=== PATIENT | female | born 1995 | race African-American/Black ===

== ENCOUNTER 2020-04-04 01:03 | Emergency (ER) | payer MEDICAID, OTHER ==
[2020-04-04 01:20] VITALS: BP 123/80
[2020-04-04] MEDS ORDERED: SILVER SULFADIAZINE 1% CREAM 25 GM TP ONE (03:42)
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
[2020-04-04] MEDS ORDERED: OXYCODONE-ACETAMINOPHEN 5-325 MG TABLET PO ONE (03:43)
[2020-04-04] MEDS ORDERED: HYDROCODONE/ACETAMINOPHEN 5-325 MG (6 TAB/ER DISP) PO PRN (03:43)
== END 2020-04-04 03:24 | disposition home or self-care (01) ==
LOC: ER 01:03
DX: T23.242A Burn of second degree of multiple left fingers (nail), including thumb, initial encounter (principal); T23.241A Burn of second degree of multiple right fingers (nail), including thumb, initial encounter; X08.8XXA Exposure to other specified smoke, fire and flames, initial encounter; Y93.89 Activity, other specified; Y92.009 Unspecified place in unspecified non-institutional (private) residence as the place of occurrence of the external cause
CPT/HCPCS: 99283

== ENCOUNTER 2020-06-02 13:52 | Emergency (ER) | payer BC ==
--- NOTE | 2020-06-02 15:59 | ER Document Report ---
ED Medical Screen (RME) - General Chief Complaint: Vag Bleeding, +preg <12wks Stated Complaint: VAGINAL BLEEDING,7 WKS Time Seen by Provider: 06/02/20 15:54 - HPI Notes: 06/02/20 15:58 25-year-old female G2, P1 LMP 04/16/2020 who is approximately 7 weeks presents to the emergency room with vaginal bleeding that started 2 days ago. Reports she had some pink spotting, then it turned a little brown and now is b ack to pink spotting. Not enough to soak through pantyliner. Her first appointment with her MITER CUTTER is June 15, 2019. Denies any nausea, vomiting, abdominal pain, diarrhea. Unsure of her ABO. I have greeted and performed a rapid initial assessment of this patient. A comprehensive ED assessment and evaluation of the patient, analysis of test results and completion of the medical decision making process will be conducted by additional ED providers. PHYSICAL EXAMINATION: GENERAL: Well-appearing, well-nourished and in no acute distress. CV: s1, s2 regular LUNGS: No respiratory distress abd: No cva tenderness bilaterally The patient was evaluated during a global COVID-19 pandemic and that diagnosis was suspected/considered upon their initial presentation. Their evaluation, tr eatment and testing was consistent with current guidelines for patients who present with complaints or symptoms and may be related to COVID-19. - Related Data Allergies/Adverse Reactions: Penicillins Allergy (Intermediate, Verified 06/02/20 15:53) Hives Physical Exam - Vital signs Vitals: Temp Pulse Resp BP Pulse Ox 97.5 F 101 H 18 149/92 H 100 06/02/20 14:33 06/02/20 14:33 06/02/20 14:33 06/02/20 14:33 06/02/20 14:33 Course - Vital Signs Vital signs: Temp Pulse Resp BP Pulse Ox 97.5 F 101 H 18 149/92 H 100 06/02/20 14:33 06/02/20 14:33 06/02/20 14:33 06/02/20 14:33 06/02/20 14:33
--- NOTE | 2020-06-02 17:07 | RADIOLOGY REPORT (SQ) ---
EXAM DESCRIPTION: U/S OB TRANSVAG W/DOPPLER IMAGES COMPLETED DATE/TIME: 06/02/2020 4:48 pm REASON FOR STUDY: vag bleeding, 7 weeks preg COMPARISON: None. TECHNIQUE: Transvaginal static and realtime grayscale images acquired of the pelvis. Additional mela cted spectral and color Doppler images recorded. All images stored on PACs. bHCG: Not available. CLINICAL DATES: 6 weeks, 5 days LIMITATIONS: None. FINDINGS: FETUS: Single Living intrauterine . ULTRASOUND EGA: 6 weeks, 1 day ULTRASOUND DAKSHA: 01/25/2021 EFW: Not applicable less than 20 weeks. CRL: 4.1 mm FHR: 115 beats per minute. SURVEY: Too early to assess. AMNIOTIC FLUID: Adequate amount. PLACENTA: Not yet developed due to early gestation. SUBCHORIONIC BLEED: Yes. SIZE OF BLEED: 5 x 8 x 4 mm UTERUS: No masses. No anomalies. CERVICAL LENGTH: 1.9 cm Closed. RIGHT ADNEXA: Ovary not identified due to poor acoustical window. LEFT ADNEXA: Normal ovary with normal vascular flow. No adnexal free fluid. No adnexal masses. FREE FLUID: None. OTHER: No other significant finding. IMPRESSION: LIVING INTRAUTERINE . EGA 6 weeks, 1 day Trimester of : First trimester - 0 to 13 weeks. TECHNICAL DOCUMENTATION: JOB ID: [id number] 2010 [employer]- All Rights Reserved rev-10/20 Reading location - IP/workstation name: [email or web address]
[2020-06-02 17:20] LABS: ABSOLUTE EOSINOPHILS # (AUTO) 0.1 10^3/uL (0.0-0.6); ABSOLUTE LYMPHOCYTES (AUTO) 1.7 10^3/uL (0.5-4.7); ABSOLUTE MONOCYTES (AUTO) 0.8 10^3/uL (0.1-1.4); ABSOLUTE NEUT (AUTO) 4.8 10^3/uL (1.7-8.2); BASOPHILS % (AUTO) 0.3 % (0-2); EOSINOPHILS % (AUTO) 1.4 % (0-6); HEMATOCRIT 32.2 % (36.0-47.0); HEMOGLOBIN 10.5 g/dL (12.0-15.5); MEAN CORPUSCULAR HEMOGLOBIN 23.9 pg (27.0-33.4); MEAN CORPUSCULAR HGB CONC 32.6 g/dL (32.0-36.0); MEAN CORPUSCULAR VOLUME 74 fl (80-97); MONOCYTES % (AUTO) 10.6 % (3-13); PLATELET COUNT 316 10^3/uL (150-450); RED BLOOD COUNT 4.37 10^6/uL (3.72-5.28); RED CELL DISTRIBUTION WIDTH 18.8 % (11.5-14.0); SEGMENTED NEUTROPHILS % (AUTO) 64.7 % (42-78); TOTAL CELLS COUNTED % (AUTO) 100 %; WHITE BLOOD COUNT 7.3 10^3/uL (4.0-10.5)
[2020-06-02 17:38] LABS: ALBUMIN 4.3 g/dL (3.5-5.0); ALKALINE PHOSPHATASE 69 U/L (38-126); ANION GAP 6 (5-19); ASPARTATE AMINO TRANSFERASE 21 U/L (14-36); BILIRUBIN,DIRECT 0.1 mg/dL (0.0-0.4); BILIRUBIN,TOTAL 0.4 mg/dL (0.2-1.3); BLOOD UREA NITROGEN 11 mg/dL (7-20); CALCIUM 9.5 mg/dL (8.4-10.2); CARBON DIOXIDE 27 mmol/L (22-30); CHLORIDE 105 mmol/L (98-107); GLUCOSE 95 mg/dL (75-110); POTASSIUM 4.1 mmol/L (3.6-5.0); TOTAL PROTEIN 7.5 g/dL (6.3-8.2)
--- NOTE | 2020-06-02 18:36 | ER Document Report ---
ED General - General Chief Complaint: Vag Bleeding, +preg <12wks Stated Complaint: VAGINAL BLEEDING,7 WKS Time Seen by Provider: 06/02/20 15:54 Primary Care Provider: AIXA,JOSÉ [Primary Care Provider] - Follow up as needed - HPI Notes: 25-year-old female at approximately 7 weeks gestation, LMP 04/16/2020 here with vaginal spotting x2 days. Patient states initially was light pink with w iping, yesterday it was more so brown, and today it was back to pink spotting with "micro clots". Denies any bright red vaginal bleeding. Denies any abdominal pain, cramping or vaginal discharge. Has not had first ultrasound yet. States that she has appointment in [place] on June 15. No nausea or vomiting. States she is otherwise healthy. - Related Data Allergies/Adverse Reactions: Penicillins Allergy (Intermediate, Verified 06/02/20 15:53) Hives Home Medications: PNV Past Medical History - General Information source: Patient Last Menstrual Period: 04/16/2020 - Social History Smoking Status: Never Smoker Chew tobacco use (# tins/day): No Frequency of alcohol use: None Drug Abuse: None Family History: Reviewed & Not Pertinent Patient has homicidal ideation: No Review of Systems - Review of Systems Constitutional: No symptoms reported EENT: No symptoms reported Cardiovascular: No symptoms reported Respiratory: No symptoms reported Gastrointestinal: No symptoms reported Genitourinary: denies: Dysuria Female Genitourinary: . denies: Vaginal discharge Musculoskeletal: No symptoms reported Skin: No symptoms reported Hematologic/Lymphatic: No symptoms reported Neurological/Psychological: No symptoms reported Physical Exam - Vital signs Vitals: Temp Pulse Resp BP Pulse Ox 97.5 F 101 H 18 149/92 H 100 06/02/20 14:33 06/02/20 14:33 06/02/20 14:33 06/02/20 14:33 06/02/20 14:33 - General General appearance: Appears well, Alert In distress: None - HEENT Head: Normocephalic, Atraumatic Extraocular movements intact: Yes Pupils: PERRL - Respiratory Breath sounds: Normal - Cardiovascular Rhythm: Regular Heart sounds: Normal auscultation - Abdominal Inspection: Obese Tenderness: Nontender - Extremities General upper extremity: Normal ROM General lower extremity: Normal ROM - Neurological Neuro grossly intact: Yes Cognition: Normal Orientation: AAOx4 - Psychological Associated symptoms: Normal affect - Skin Skin Temperature: Warm Course - Re-evaluation Re-evalutation: 25-year-old female at approximately 7 weeks gestation by dates here with spotting x2 days, no overt vaginal bleeding, no pain/cramping. On exam she is alert, well-appearing, abdomen is soft. She is hypertensive, however she is an early first term , potentially could have an underlying history of high blood pressure given her obesity. She had an ultrasound performed through the triage process which shows an IUP 6 weeks 5 days gestation, heart rate 115, evidence of a subchorionic bleed and a closed cervix. Patient was updated on these results. Also discussed with her that while the ultrasound is a reassuring today, cannot predict totally successful and spontaneous miscarriage could occur. Will perform pelvic exam. 06/02/20 19:10 Pelvic exam performed, cervix closed, no aleida bleeding or discharge. Patient would like to leave at this time. Discussed with her that she will be called if the pelvic swabs are abnormal. Her urine sample has not resulted, I discussed with her that I will send a prescription to the pharmacy if there is evidence of UTI. She verbalized understanding. She has OB follow-up. Return precautions given, stable at time of discharge. 06/02/20 19:48 UA has resulted, negative for UTI or bacteriuria - Vital Signs Vital signs: Temp Pulse Resp BP Pulse Ox 98.4 F 93 18 135/86 H 100 06/02/20 19:30 06/02/20 19:30 06/02/20 19:30 06/02/20 19:30 06/02/20 19:30 - Laboratory Results Result Diagrams: 06/02/20 17:00 06/02/20 17:00 Laboratory Results Interpreted: 06/02/20 06/02/20 06/02/20 17:00 17:00 19:02 Hgb 10.5 L Hct 32.2 L MCV 74 L MCH 23.9 L RDW 18.8 H Beta HCG, Quant 2844.60 H Ur Leukocyte Esterase TRACE H Urine Ascorbic Acid 40 H Critical Laboratory Results Reviewed: No Critical Results - Radiology Results Critical Radiology Results Reviewed: No Critical Results Discharge - Discharge Clinical Impression: Spotting in first trimester Disposition: HOME, SELF-CARE Additional Instructions: Please follow-up with ADJUSTMENT CLERK as planned. As discussed, you will be called if any abnormalities are seen on the pelvic swabs. Return to the emergency department for concerning worsening symptoms. Forms: Return to Work Referrals: AIXA,NO [Primary Care Provider] - Follow up as needed
[2020-06-02 19:28] LABS: APPEARANCE,URINE CLEAR; BILIRUBIN,URINE NEGATIVE (NEGATIVE); COLOR,URINE YELLOW; GLUCOSE, URINE NEGATIVE (NEGATIVE); KETONES,URINE NEGATIVE (NEGATIVE); LEUKOCYTE ESTERASE,URINE TRACE (NEGATIVE); NITRITE,URINE NEGATIVE (NEGATIVE); PROTEIN,URINE NEGATIVE (NEGATIVE); URINE SPECIFIC GRAVITY 1.025; UROBILINOGEN,URINE NEGATIVE mg/dL (<2.0)
[2020-06-02 19:32] VITALS: BP 135/86
[2020-06-02 19:50] LABS: RBCS (WET MOUNT) NO RBCS SEEN; T.VAGINALIS (WET MOUNT) NO TRICHOMONAS SEEN; WBCS (WET MOUNT) RARE WBCS SEEN; YEAST (WET MOUNT) NO YEAST SEEN
[2020-06-02 21:13] LABS: CHLAM PCR NOT DETECTED (NOT DETECT)
== END 2020-06-02 19:32 | disposition home or self-care (01) ==
LOC: ER 13:52
DX: O26.851 Spotting complicating pregnancy, first trimester (principal); O20.8 Other hemorrhage in early pregnancy; O16.1 Unspecified maternal hypertension, first trimester; O99.211 Obesity complicating pregnancy, first trimester; E66.9 Obesity, unspecified; Z3A.01 Less than 8 weeks gestation of pregnancy; Z79.899 Other long term (current) drug therapy; Z88.0 Allergy status to penicillin
CPT/HCPCS: 36415; 76817; 80053; 81001; 84702; 85025; 86900; 86901; 87210; 87491; 87591; 93976; 99284